=== PATIENT | male | born 1970 | race Caucasian/White ===

== ENCOUNTER 2017-08-23 20:07 | Emergency (ER) | payer SELFPAY ==
[2017-08-23 20:12] VITALS: TEMP 98.1
--- NOTE | 2017-08-23 20:13 | EDPHY ---
H & P Stated Complaint: groin/testicle pain Time Seen by Provider: 08/23/17 20:13 HPI/ROS: CHIEF COMPLAINT: Bilateral testicular pain HISTORY OF PRESENT ILLNESS: The patient presents the ED with a 1 day history of bilateral testicular pain. The patient denies any urethral discharge. The patient reports he is a monogamous relationship. He does have a history of epididymitis x1 in the past. He denies any history of fever, trauma, cough, congestion or additional acute complaints. REVIEW OF SYSTEMS: A comprehensive 10 point review of systems is otherwise negative aside from elements mentioned in the history of present illness. Source: Patient Exam Limitations: No limitations - Personal History Current Tetanus/Diphtheria Vaccine: Yes - Medical/Surgical History Hx Asthma: No Hx Chronic Respiratory Disease: Yes Hx Diabetes: Yes Hx Cardiac Disease: No Hx Renal Disease: No Hx Cirrhosis: No Hx Alcoholism: No Hx HIV/AIDS: No Hx Splenectomy or Spleen Trauma: No Other PMH: hep c, COPD, heart murmur. jaw sx - Social History Smoking Status: Current every day smoker - Physical Exam Exam: General Appearance: Alert, no distress Eyes: Pupils equal and round no pallor or injection ENT, Mouth: Mucous membranes moist Respiratory: There are no retractions, lungs are clear to auscultation Cardiovascular: Regular rate and rhythm Gastrointestinal: Abdomen is soft and nontender, no masses, bowel sounds normal Genitourinary: Bilateral testicular tenderness, no clinical evidence of torsion , no erythema, no scrotal mass or abscess Neurological: A&O, normal motor function, normal sensory exam, normal cranial nerves Skin: Warm and dry, no rashes Musculoskeletal: Neck is supple nontender Extremities: symmetrical, full range of motion Constitutional: Initial Vital Signs Temperature (C) 36.7 C 08/23/17 20:09 Heart Rate 58 L 08/23/17 20:09 Respiratory Rate 18 08/23/17 20:09 Blood Pressure 134/84 H 08/23/17 20:09 O2 Sat (%) 98 08/23/17 20:09 O2 Delivery Mode Room Air Allergies/Adverse Reactions: Penicillins Allergy (Verified 08/23/17 20:12) Home Medications: Medication Instructions Recorded NK [No Known Home Meds] 08/23/17 Medical Decision Making - Diagnostics Imaging Results: Imaging Impressions Testicular Ultrasound 08/23/17 20:18 Impression: 1. Normal testicular ultrasound. Incidentally, there is a single macrocalcification of the right testicle. 2. Bilateral varicoceles, more pronounced on the right, and there may be an element of either slow flow or venous thrombosis in the lateral aspect of the right scrotum associated with a varicocele. 3. See above report for additional findings. Results called and discussed with Anival Bui M.D., on August 23, 2017 at 2156. ED Course/Re-evaluation: The patient presents the ED for evaluation of testicular pain. The patient was noted to have no obvious clinical evidence of torsion on exam. The patient did have mild epididymal tenderness bilaterally. He was taken for a ultrasound which demonstrated normal flow to the testes and epididymitis. The patient was noted to have bilateral varicoceles. The patient will be advised to take ibuprofen as needed for management of pain. The patient is asked to follow up with Urology for any ongoing symptoms. He should return to the ED for acute testicular pain or other concerns. Differential Diagnosis: Differential diagnosis considered includes testicular torsion, varicocele, epididymitis Departure - Departure Disposition: Home, Routine, Self-Care Clinical Impression: Bilateral varicoceles Condition: Good Instructions: Varicocele (ED) Additional Instructions: 1. Take Ibuprofen or Motrin 600 mg by mouth three times a day. 2. Please follow up with our urologist for any unimproved symptoms. You have been given the contact number. Referrals: Gil Victor MD [Medical Doctor] - As per Instructions
[2017-08-23 22:21] VITALS: O2SAT 96
[2017-08-23] MEDS ORDERED: IBUPROFEN 600 MG TAB PO ONE (22:31)
[2017-08-23 23:00] VITALS: BP 119/72; PULSE 61; RESP 16
== END 2017-08-23 22:59 | disposition home or self-care (01) ==
DX: I86.1 Scrotal varices (principal); J44.9 Chronic obstructive pulmonary disease, unspecified; F17.200 Nicotine dependence, unspecified, uncomplicated

== ENCOUNTER 2017-09-16 20:36 | Emergency (ER) | payer SELFPAY ==
--- NOTE | 2017-09-16 20:52 | EDPHY ---
H & P Stated Complaint: depressed, SI Source: Patient Exam Limitations: No limitations - Personal History Current Tetanus/Diphtheria Vaccine: Yes - Medical/Surgical History Hx Asthma: No Hx Chronic Respiratory Disease: Yes Hx Diabetes: Yes Hx Cardiac Disease: No Hx Renal Disease: No Hx Cirrhosis: No Hx Alcoholism: No Hx HIV/AIDS: No Hx Splenectomy or Spleen Trauma: No Other PMH: hep c, COPD, heart murmur. jaw sx, borderline DM. PTSD, bipolar, anxiety - Social History Smoking Status: Current every day smoker Time Seen by Provider: 09/16/17 20:51 HPI/ROS: HPI: This is a 47-year-old male who presents with Chief Complaint: Suicidal ideation Location:psych Quality: Suicidal ideation Duration: Days Signs and Symptoms: no auditory and visual command hallucinations, + suicidal ideation with a plan, no homicidal ideation, no paranoia Timing: Acute on chronic Severity: Moderate Context: Patient has a history of depression with multiple suicide attempts in the past by cutting his arm and overdosing on alcohol and drugs presents voluntarily today with drinking a gallon of vodka daily to the point he passes out in the hopes that he does not wake up. He admits that he wants to end his life. There is nothing to live for anymore. 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 Originally from [place], moved to [facility] approximately 4 and half months ago. Has been living on the streets since that time. Unemployed. Reports no family or friend support. Modifying Factors: None Comment: ROS: see HPI Constitutional: No fever, no chills, no weight loss Eyes: No blurred vision Respiratory: No shortness of breath, no cough Cardiovascular: No chest pain Gastrointestinal: No nausea, no vomiting, no diarrhea Genitourinary: No dysuria Extremities: No myalgias Neurologic: No weakness, no numbness Skin: No rashes Hematologic: No bruising, no bleeding MEDICAL/SURGICAL/SOCIAL HISTORY: Medical history: Heart murmur, IV methamphetamine use, alcohol abuse. Surgical history: Oral surgery Social history: Homeless. CONSTITUTIONAL: Untidy, cooperative, adult white male, awake and alert, no obvious distress HEENT: Atraumatic and normocephalic, PERRL, EOMI. Tympanic membranes clear. Oropharynx clear, no exudate and moist pink mucosa. Airway patent. No lymphadenopathy. No meningismus. Cardiovascular: Normal S1/S2, regular rate, regular rhythm, without murmur rub or gallop. PULMONARY/CHEST: Symmetrical and nontender. Clear to auscultation bilaterally. Good air movement. No accessory muscle usage. ABDOMEN: Soft, nondistended, nontender, no rebound, no guarding, no peritoneal signs, no masses or organomegaly. No CVAT. EXTREMITIES: 2/2 pulses, strength 5/5, no deformities, no clubbing, no cyanosis or edema. NEUROLOGICAL: no focal neuro deficits. GCS 15. SKIN: Warm and dry, tattoos covering body, no erythema. no rash. Good capillary refill. PSYCH: Poor eye contact, no flight of ideas, organized thought process, fair insight and judgment, no auditory and visual command hallucinations, + suicidal ideation with a plan, no homicidal ideation, no paranoia (Joanne Hudson) Constitutional: Initial Vital Signs Temperature (C) 36.7 C 09/16/17 20:39 Heart Rate 85 09/16/17 20:39 Respiratory Rate 18 09/16/17 20:39 Blood Pressure 152/81 H 09/16/17 20:39 O2 Sat (%) 93 09/16/17 20:39 O2 Delivery Mode Room Air Allergies/Adverse Reactions: Penicillins Allergy (Verified 09/16/17 20:41) Home Medications: Medication Instructions Recorded NK [No Known Home Meds] 08/23/17 Medical Decision Making ED Course/Re-evaluation: 2100: Placed on M1 hold for suicidal ideation. Patient is quite calm and cooperative. No interventions required at this time. Reviewed labs and UDS and positive for methamphetamine; will be medically clear at 0845 End of shift. Signed over to Dr. Castellon pending medical clearance in the morning for mental health evaluation and final disposition. (Joanne Hudson) 0227: Patient been evaluated and will seek inpatient psychiatric hospitalization. 0609AM: No acute events overnight patient sleeping. Patient pending inpatient psychiatric hospitalization patient signed over at 7:00 a.m. shift change to Dr. Delatorre (Daniel Castellon) Differential Diagnosis: Differential diagnosis includes but is not limited to transient, major depression functional versus situational, intoxication, alcohol abuse, drug abuse. (Joanne Hudson) Other Provider: I assumed care of this patient at 7:[address] Castellon. He has been cooperative throughout my shift. Placement is being sought. His care will be transferred to Dr. Palumbo at 3:45 p.m.. (Vee Delatorre) I assumed care of this patient from Dr. Delatorre at 3:45 p.m.. Patient had received a dose Ativan 1 mg by mouth had his request for some anxiety. Patient was resting comfortably throughout my shift. He required no further medications. We continue to await placement. Patient's care will be assumed by Dr. Reyes at 12:15 a.m. (Janina Palumbo) 6:20 a.m.- The patient remained stable throughout my shift, sleeping for most of it. He was seen by the mental health worker to wait who recommended lifting his hold and discharging him. He is no longer suicidal. He admits to needing a place to stay for few nights. He will be discharged with follow up with [facility]. (Leeann Reyes) - Data Points Laboratory Results: Laboratory Results 09/16/17 21:00 09/16/17 21:00 Medications Given: Discontinued Medications Lorazepam (Ativan) 1 mg PO EDNOW ONE Stop: 09/17/17 15:52 Last Admin: 09/17/17 15:55 Dose: 1 mg Departure - Departure Disposition: Home, Routine, Self-Care Clinical Impression: Alcohol abuse, Methamphetamine use, Intravenous drug user Condition: Good Instructions: [facility] Referrals: [facility] [Other] - As per Instructions [facility] [Clinic] - As per Instructions
[2017-09-16 21:17] LABS: PLATELET COUNT 255 10^3/uL (150-400)
[2017-09-17 07:26] VITALS: TEMP 97.7
[2017-09-17] MEDS ORDERED: LORazepam 1 MG TAB ONE (15:51)
[2017-09-17] MEDS ORDERED: LORazepam 1 MG TAB PO ONE (15:51)
[2017-09-17 23:15] VITALS: RESP 16
[2017-09-18 06:33] VITALS: BP 120/70; PULSE 78; O2SAT 96
== END 2017-09-18 06:38 | disposition home or self-care (01) ==
DX: F10.129 Alcohol abuse with intoxication, unspecified (principal); F15.90 Other stimulant use, unspecified, uncomplicated; F19.10 Other psychoactive substance abuse, uncomplicated; J44.9 Chronic obstructive pulmonary disease, unspecified; F17.200 Nicotine dependence, unspecified, uncomplicated
CPT/HCPCS: 80305; G0480

== ENCOUNTER 2017-10-14 16:08 | Emergency (ER) | payer SELFPAY ==
--- NOTE | 2017-10-14 16:46 | EDPHY ---
H & P Time Seen by Provider: 10/14/17 16:19 HPI/ROS: CHIEF COMPLAINT: Suspected alcohol use HISTORY OF PRESENT ILLNESS: 47-year-old male history of homelessness, alcoholism, arrives via police after he was found sleeping outdoors, suspected alcohol use. He was aggressive with police officers in was initially placed in restraints. Denies suicidal or homicidal ideation. He was discharged from the emergency department recently for suicidal ideations and told to follow up with [facility]. No reports of trauma or fall. Patient denies assault. REVIEW OF SYSTEMS: A ten point review of systems was performed and is negative with the exception of the items mentioned in the HPI PAST MEDICAL & SURGICAL HISTORY: Alcoholism SOCIAL HISTORY:Admits to positive alcohol use PHYSICAL EXAM (Prior to examination, patient consented to physical exam, hands were washed and my usual and customary physical exam procedures followed) 1) GENERAL: Poorly kept foul smelling, sleeping easily woken 2) HEAD: Normocephalic, atraumatic 3) HEENT: Pupils equal, round, reactive to light bilaterally. Sclera anicteric. No raccoon eyes no Guevara sign.. No rhinorrhea. No otorrhea. 4) NECK: Full range of motion, no meningeal signs. 5) LUNGS: Clear auscultation bilaterally, no wheezes, no rhonchi, no retractions. 6) HEART: Regular rate and rhythm, no murmur, no heave, no gallop. 7) ABDOMEN: No guarding, no rebound, no focal tenderness, 8) MUSCULOSKELETAL: No peripheral edema or discoloration. No signs of trauma 9) BACK: No obvious trauma, no visual or palpable abnormality. 10) SKIN: No rash, no petechiae. 11) Psychiatric: Patient is oriented X 3, there is no agitation. DIFFERENTIAL DIAGNOSIS: In no particular include but limited to trauma, acute alcohol use, polysubstance abuse Smoking Status: Current every day smoker Constitutional: Initial Vital Signs Temperature (C) 36.7 C 10/14/17 16:19 Heart Rate 31 L 10/14/17 16:19 Respiratory Rate 18 10/14/17 16:19 Blood Pressure 125/74 H 10/14/17 16:19 O2 Sat (%) 95 10/14/17 16:19 O2 Delivery Mode Room Air Allergies/Adverse Reactions: Penicillins Allergy (Verified 09/16/17 20:41) Home Medications: Medication Instructions Recorded NK [No Known Home Meds] 08/23/17 MDM/Departure - Depart Disposition: Home, Routine, Self-Care Clinical Impression: Alcohol use, Homeless single person Condition: Good Instructions: Abuse of Alcohol (ED) Referrals: [facility] [Outside] - As per Instructions
[2017-10-14 17:20] VITALS: RESP 16
[2017-10-14 19:25] VITALS: BP 120/79; PULSE 67; TEMP 97.9; O2SAT 95
== END 2017-10-14 19:25 | disposition home or self-care (01) ==
LOC: EDUNIT#
DX: F10.929 Alcohol use, unspecified with intoxication, unspecified (principal); F17.200 Nicotine dependence, unspecified, uncomplicated; Z59.0 Homelessness